=== PATIENT | female | born 1985 | race Caucasian/White ===

== ENCOUNTER 2020-05-20 17:53 | Emergency (ER) | payer OTHER, SELFPAY ==
--- NOTE | ~2020-05-20 | XR_ITS ---
XR chest 1V portable 05/20/2020 18:22 Indication: Cough and sore throat with congestion Procedure: AP portable chest Comparison: 08/04/2017 Findings: Right upper lobe airspace disease, compatible with pneumonia. No pleural effusion or edema. No pneumothorax. Cardiomegaly. There is deformity of the right humerus, likely related to known aleida nile rheumatoid arthritis. Impression: 1: Right upper lobe airspace disease, compatible with pneumonia. Reviewed, dictated and finalized at location A. 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
[2020-05-20 17:54] VITALS: BP 115/79; PULSE 99; RESP 18; TEMP 36.2; O2SAT 97
--- NOTE | 2020-05-20 18:06 | ED.SOB ---
HPI - SOB/Dyspnea General Chief Complaint: Shortness of Breath/Dyspnea Stated Complaint: covid +/diagnosed 05/20/2020 Time Seen by Provider: 05/20/20 18:05 Source: patient Mode of arrival: ambulatory Limitations: no limitations History of Present Illness HPI Narrative: Patient is a 34-year-old female complaining of cough, productive, clear sputum nasal congestion, rhinorrhea and fever x1 week. Patient states that she tested positive for Covid today was told by her primary care physician to go to the emergency room to get a chest x-ray. Patient denies being short of breath, disagree with nursing assessment. I have asked multiple times if she is short of breath and she denied. Denies any chest pain, dental pain, nausea, vomiting, diarrhea or rash. Related Data Allergies Allergy/AdvReac Type Severity Reaction Status Date / Time No Known Allergies Allergy Verified 05/20/20 17:57 Review of Systems Review of Systems: All systems reviewed & are unremarkable except as noted in HPI and below Constitutional: Constitutional: Denies chills, Denies excessive sweating, Denies fatigue, Denies headache(s), Denies lethargy, Denies malaise, Denies weakness and Denies weight loss Eyes: Eyes: Denies blurry vision, Denies change in vision and Denies loss of vision ENT: Denies dizziness, Denies ear discharge, Denies headache(s), Denies lip swelling, Denies epistaxis, Denies neck pain, Denies throat swelling and Denies tongue swelling Cardiovascular: Cardiovascular: Denies chest pain, Denies chest pain at rest, Denies chest pain with activity, Denies diaphoresis, Denies rapid heart rate, Denies edema, Denies irregular heart rhythm, Denies lightheadedness, Denies palpitations and Denies dyspnea on exertion Respiratory: Respiratory: Denies chest congestion, Denies hemoptysis and Denies dyspnea on exertion Gastrointestinal: Gastrointestinal: Denies abdominal pain, Denies melena, Denies hematochezia, Denies diarrhea, Denies nausea, Denies vomiting and Denies hematemesis Musculoskeletal: Musculoskeletal: Denies abnormal gait, Denies deformity, Denies joint swelling, Denies limited range of motion, Denies neck pain and Denies numbness Neurologic: Denies Abnormal speech present, Denies abnormal gait, Denies confusion, Denies dizziness, Denies headache(s), Denies focal weakness, Denies loss of vision, Denies numbness, Denies Other visual disturbances, Denies Sensory deficit (Neuro) and Denies weakness Psychiatric: Psychiatric: Denies confusion, Denies depression, Denies auditory hallucinations, Denies homicidal ideation and Denies suicidal ideation Endocrine: Endocrine: Denies cold intolerance, Denies excessive sweating, Denies fatigue, Denies heat intolerance and Denies palpitations Hematologic/Lymphatic: Hematologic/Lymphatic: Denies easy bleeding and Denies easy bruising Allergic/Immunologic: Allergic/Immunologic: Denies lip swelling, Denies throat swelling and Denies tongue swelling [facility] Social History Social History Smoking status: Never smoker Alcohol intake: never Exam Const: General: cooperative, healthy appearing, comfortable, no acute distress, well developed, alert and awake; No confusion Orientation/consciousness: oriented to person, oriented to place, oriented to time, patient oriented x3 and No confusion Limitations: no limitations HENMT: Head: normal to inspection, normocephalic and atraumatic Ears: hearing grossly normal bilaterally, TM normal on the right and TM normal on the left General nose exam: Normal external nose present, Normal nares present and No nasal discharge present Face and sinus: normal facial exam Mouth: Yes Normal oral and palatal mucosa present, Yes lip normal, Yes tongue normal and Yes oropharynx normal Throat: posterior oropharynx normal, tonsils normal and uvula midline Eyes: General: appearance normal, both eyes and all related structures Pupils: Equ
[2020-05-20] MEDS: AZITHROMYCIN 200 MG/5 ML SUSPENSION UD 500 MG PO (20:07)
[2020-05-20] MEDS: AMOXICILLIN/CLAVULANATE K SUSP 400-57 MG/5 ML 5 ML UD 500 MG PO (20:07)
[2020-05-20 20:08] VITALS: BP 112/62; PULSE 74; RESP 14; O2SAT 97
== END 2020-05-20 20:09 | disposition home or self-care (01) ==
PROVIDERS: Emergency Provider Emergency Medicine; PCP Internal Medicine
DX: U07.1 COVID-19 (principal); J12.82 Pneumonia due to coronavirus disease 2019
CPT/HCPCS: 71045; 99283; A9270

== ENCOUNTER 2020-05-26 10:46 | Outpatient (CLI) | payer OTHER, SELFPAY ==
--- NOTE | ~2020-05-26 | XR_ITS ---
EXAMINATION: XR chest 2V 05/26/2020 11:07 INDICATION: Cough. Follow-up pneumonia. PROCEDURE: 2 view chest COMPARISON: Comparison to multiple prior studies sequentially, with oldest reviewed study dated 08/04. FINDINGS: The lungs are clear. No evidence for right upper lobe airspace disease seen on prior study. Cardiomegaly. There are no pleural effusions. There is no pneumothorax suspected. IMPRESSION: 1: NO ACUTE CARDIOPULMONARY DISEASE. Reviewed, dictated and finalized at location B. [employer]
== END 2020-05-26 10:47 | disposition home or self-care (01) ==
PROVIDERS: PCP Internal Medicine; Visit Provider Internal Medicine
DX: R05 Cough (principal)
CPT/HCPCS: 71046

== ENCOUNTER 2021-07-11 12:17 | Outpatient (CLI) | payer OTHER, SELFPAY ==
--- NOTE | ~2021-07-11 | XR_ITS ---
XR chest 2V DATE: 07/11/2021 12:34 INDICATION: Shortness of breath. Recent blood transfusion. TECHNIQUE: AP and lateral views COMPARISON: May 26, 2020 2 view chest FINDINGS: No pulmonary infiltrate or consolidation, pleural effusion or pulmonary vascular congestion or pneumothorax is evident. Borderline heart size. Prominent erosive changes at the glenohumeral joints consistent with history of juvenile rheumatoid a rthritis. IMPRESSION: No active pulmonary disease Reviewed, dictated and finalized at location A. IMPRESSION: No active pulmonary disease
== END 2021-07-11 12:18 | disposition home or self-care (01) ==
PROVIDERS: PCP Internal Medicine; Visit Provider Internal Medicine
DX: R06.02 Shortness of breath (principal)
CPT/HCPCS: 71046